=== PATIENT | female | born 1995 | race Caucasian/White ===

== ENCOUNTER → 2023-07-22 | Outpatient (CLI) | payer SELFPAY ==
[2023-07-22 10:55] LABS: BASO # 0.05 K/mm3 (0.02-0.10); EOS # 0.23 K/mm3 (0.04-0.40); EOS % 2.5 % (1.0-5.0); HEMATOCRIT 42.8 % (37.0-47.0); HEMOGLOBIN 14.6 g/dL (12.5-16.0); LYMPH# 3.16 K/mm3 (1.50-4.00); MEAN CELL VOLUME 90 fl (78-100); MEAN CORPUSCULAR HEMOGLOBIN 31 pg (27-31); MEAN CORPUSCULAR HGB CONC 34 g/dL (33-37); MEAN PLATELET VOLUME 9.7 fl (7.4-10.4); MONO # 0.53 K/mm3 (0.20-0.80); NEU # 5.35 K/mm3 (1.40-6.50); PLATELET COUNT 323 K/mm3 (130-400); RED BLOOD COUNT 4.74 M/mm3 (4.10-5.30); RED CELL DISTRIBUTION WIDTH 11.8 % (11.5-14.5); WHITE BLOOD COUNT 9.3 K/mm3 (4.8-10.8)
[2023-07-22 11:01] LABS: ALBUMIN 4.4 g/dL (3.5-5.0)
[2023-07-22 11:03] LABS: TOTAL PROTEIN 7.6 g/dL (6.4-8.3)
[2023-07-22 11:05] LABS: TOTAL BILIRUBIN 0.9 mg/dL (0.2-1.2)
== END ==
LOC: LAB 10:38
PROVIDERS: Physician Assistant
DX: Z13.1 Encounter for screening for diabetes mellitus (principal); Z13.29 Encounter for screening for other suspected endocrine disorder; Z13.220 Encounter for screening for lipoid disorders; K90.9 Intestinal malabsorption, unspecified

== ENCOUNTER → 2023-12-23 | Outpatient (REF) | payer OTHER ==
[2023-12-23 18:18] LABS: BASO # 0.04 K/mm3 (0.02-0.10); EOS % 2.7 % (1.0-5.0); HEMATOCRIT 39.8 % (37.0-47.0); HEMOGLOBIN 13.7 g/dL (12.5-16.0); LYMPH# 4.36 K/mm3 (1.50-4.00); MEAN CELL VOLUME 91 fl (78-100); MEAN CORPUSCULAR HEMOGLOBIN 31 pg (27-31); MEAN CORPUSCULAR HGB CONC 34 g/dL (33-37); MEAN PLATELET VOLUME 9.8 fl (7.4-10.4); MONO # 0.49 K/mm3 (0.20-0.80); PLATELET COUNT 314 K/mm3 (130-400); RED BLOOD COUNT 4.39 M/mm3 (4.10-5.30); RED CELL DISTRIBUTION WIDTH 12.2 % (11.5-14.5); WHITE BLOOD COUNT 11.2 K/mm3 (4.8-10.8)
[2023-12-23 18:26] LABS: ALBUMIN 4.4 g/dL (3.5-5.0)
[2023-12-23 18:27] LABS: CALCIUM 9.6 mg/dL (8.3-10.5)
[2023-12-23 18:28] LABS: TOTAL PROTEIN 7.6 g/dL (6.4-8.3)
[2023-12-23 18:30] LABS: TOTAL BILIRUBIN 0.4 mg/dL (0.2-1.2)
[2023-12-23 18:35] LABS: MAGNESIUM 1.93 mg/dL (1.60-2.60)
== END ==
LOC: LAB 17:42
PROVIDERS: Nurse Practitioner Family
DX: R19.7 Diarrhea, unspecified (principal)

== ENCOUNTER → 2024-04-24 | Outpatient (CLI) | payer OTHER ==
[2024-04-24 19:02] LABS: URINE APPEARANCE SLIGHTLY CLOUDY (CLEAR); URINE COLOR DARK YELLOW (YELLOW)
[2024-04-24 19:04] LABS: PH-URINE 6.5 (5.0 - 8.0); URINE BILIRUBIN 1+ (NEGATIVE); URINE BLOOD NEGATIVE (NEGATIVE); URINE GLUCOSE NEGATIVE (NEGATIVE); URINE KETONE 1+ (NEGATIVE); URINE LEUKOCYTE ESTERASE NEGATIVE (NEGATIVE); URINE NITRATE NEGATIVE (NEGATIVE); URINE PROTEIN(semi-quant) NEGATIVE (NEGATIVE)
[2024-04-24 19:11] LABS: URINE MUCUS PRESENT (NOT PRESENT); URINE WBC 0-1 /hpf (0-3)
== END ==
LOC: LAB 18:26
PROVIDERS: Physician Assistant
DX: D64.9 Anemia, unspecified (principal); R51.9 Headache, unspecified; R35.0 Frequency of micturition; Z33.1 Pregnant state, incidental

== ENCOUNTER → 2024-05-01 | Outpatient (CLI) | payer OTHER ==
[2024-05-01 11:05] LABS: URINE WBC 0 /hpf (0-3)
[2024-05-01 11:18] LABS: BASO # 0.02 K/mm3 (0.02-0.10); EOS # 0.26 K/mm3 (0.04-0.40); EOS % 2.8 % (1.0-5.0); HEMATOCRIT 34.5 % (37.0-47.0); HEMOGLOBIN 12.2 g/dL (12.5-16.0); LYMPH# 2.73 K/mm3 (1.50-4.00); MEAN CELL VOLUME 90 fl (78-100); MEAN CORPUSCULAR HEMOGLOBIN 32 pg (27-31); MEAN CORPUSCULAR HGB CONC 35 g/dL (33-37); MEAN PLATELET VOLUME 9.8 fl (7.4-10.4); MONO # 0.32 K/mm3 (0.20-0.80); NEU # 5.81 K/mm3 (1.40-6.50); PLATELET COUNT 267 K/mm3 (130-400); RED BLOOD COUNT 3.82 M/mm3 (4.10-5.30); RED CELL DISTRIBUTION WIDTH 12.2 % (11.5-14.5); WHITE BLOOD COUNT 9.2 K/mm3 (4.8-10.8)
[2024-05-01 11:25] LABS: ALBUMIN 3.8 g/dL (3.5-5.0)
[2024-05-01 11:26] LABS: CALCIUM 10.1 mg/dL (8.3-10.5)
[2024-05-01 11:28] LABS: TOTAL PROTEIN 6.8 g/dL (6.4-8.3)
[2024-05-01 11:29] LABS: TOTAL BILIRUBIN 0.5 mg/dL (0.2-1.2)
[2024-05-01 11:32] LABS: URINE APPEARANCE CLEAR (CLEAR); URINE BILIRUBIN NEGATIVE (NEGATIVE); URINE BLOOD TRACE-INTACT (NEGATIVE); URINE COLOR YELLOW (YELLOW); URINE GLUCOSE NEGATIVE (NEGATIVE); URINE KETONE 2+ (NEGATIVE); URINE LEUKOCYTE ESTERASE NEGATIVE (NEGATIVE); URINE NITRATE NEGATIVE (NEGATIVE); URINE PROTEIN(semi-quant) NEGATIVE (NEGATIVE)
== END ==
LOC: LAB 10:54
PROVIDERS: Physician Assistant
DX: D64.9 Anemia, unspecified (principal); R51.9 Headache, unspecified; R35.0 Frequency of micturition; Z33.1 Pregnant state, incidental

== ENCOUNTER → 2024-05-26 | Outpatient (CLI) | payer OTHER | LOC: RAD 09:08 | DX: Z33.1 Pregnant state, incidental (principal) ==